=== PATIENT | female | born 1955 | race Caucasian/White ===

== ENCOUNTER 2017-05-26 15:36 | Observation (INO) | payer OTHER ==
[2017-05-26 15:36] VITALS: BMI 30.5
[2017-05-26] MEDS ORDERED: Aspirin 325 mg EC Tablets PO STA (16:28)
[2017-05-26 16:51] LABS: BASO # 0.1 K/uL (0.0-0.2); BASO % 0.9 % (0.0-2.0); EOS # 0.2 K/uL (0.0-0.7); EOS % 2.8 % (0.0-4.0); HEMATOCRIT 36.9 % (34.0-47.0); LYMPH # 3.4 K/uL (1.0-4.3); LYMPH % 40.6 % (20.0-40.0); MEAN CELL VOLUME 85.6 fL (81.0-99.0); MEAN CORPUSCULAR HEMOGLOBIN 27.9 pg (27.0-31.0); MEAN CORPUSCULAR HGB CONC 32.6 g/dL (33.0-37.0); MEAN PLATELET VOLUME 7.9 fL (7.2-11.7); MONO # 0.4 K/uL (0.0-0.8); MONO % 5.2 % (0.0-10.0); NRBC % 0.1 % (0.0-2.0); RED CELL DISTRIBUTION WIDTH 12.9 % (11.5-14.5); WHITE BLOOD COUNT 8.5 K/uL (4.8-10.8)
[2017-05-26 16:57] LABS: ALB/GLOB RATIO 1.4 (1.0-2.1); ALKALINE PHOSPHATASE 114 U/L (38-126); ALT/SGPT 60 U/L (9-52); AST/SGOT 37 U/L (14-36); BILIRUBIN,TOTAL 0.5 mg/dL (0.2-1.3); BLOOD UREA NITROGEN 20 mg/dL (7-17); CALCIUM 8.5 mg/dl (8.6-10.4); CARBON DIOXIDE 23 mmol/L (22-30); CHLORIDE 100 mmol/L (98-107); GFR AFRICAN-AMERICAN > 60; GLUCOSE,RANDOM 150 mg/dL (65-105); POTASSIUM 3.6 mmol/L (3.6-5.2); SODIUM 135 mmol/L (132-148); TOTAL PROTEIN 7.2 g/dL (6.3-8.3)
--- NOTE | 2017-05-26 17:15 | RAD ---
PROCEDURE: CHEST RADIOGRAPH, 1 VIEW HISTORY: chest pain COMPARISON: None available. FINDINGS: LUNGS: Clear. PLEURA: No pneumothorax or pleural fluid seen. CARDIOVASCULAR: Normal. OSSEOUS STRUCTURES: No significant abnormalities. VISUALIZED UPPER ABDOMEN: Normal. OTHER FINDINGS: None. IMPRESSION: No active disease.
--- NOTE | 2017-05-26 17:30 | C.PDOC ---
History Of Present Illness 61 yr old female with PMHx of HTN and high cholesterol, presents to the ER for 2 day history of chest pain, SOB and nausea worse with exertion. Patient also reports of overall body pain. Denies fever, chills vomiting, abdominal pain, diarrhea, weakness or numbness. Time Seen by Provider: 05/26/17 16:12 Chief Complaint (Nursing): Chest Pain History Per: Patient History/Exam Limitations: no limitations Onset/Duration Of Symptoms: Days (3) Past Medical History Reviewed: Historical Data, Nursing Documentation, Vital Signs Vital Signs: Last Vital Signs Temp 98.2 F 05/26/17 15:41 Pulse 92 H 05/26/17 17:32 Resp 18 05/26/17 17:32 BP 161/105 H 05/26/17 17:32 Pulse Ox 97 05/26/17 17:35 - Medical History PMH: Anxiety, Bipolar Disorder, Depression, HTN, Hypercholesterolemia, Hyperlipidemia Family History: States: No Known Family Hx - Social History Hx Tobacco Use: No Hx Alcohol Use: No Hx Substance Use: No - Immunization History Hx Tetanus Toxoid Vaccination: No Hx Influenza Vaccination: Yes Hx Pneumococcal Vaccination: Yes Review Of Systems Except As Marked, All Systems Reviewed And Found Negative. Constitutional: Positive for: Other ((+) Overall body pain). Negative for: Fever, Chills Cardiovascular: Positive for: Chest Pain Respiratory: Positive for: Shortness of Breath Gastrointestinal: Positive for: Nausea. Negative for: Vomiting, Abdominal Pain , Diarrhea Neurological: Negative for: Weakness, Numbness Physical Exam - Physical Exam Appears: Non-toxic, No Acute Distress Skin: Warm, Dry, No Rash Head: Atraumatic, Normacephalic Oral Mucosa: Moist Chest: Symmetrical, No Tenderness Cardiovascular: Rhythm Regular, No Murmur Respiratory: Normal Breath Sounds, No Rales, No Rhonchi, No Stridor, No Wheezing Extremity: Normal ROM, No Swelling Neurological/Psych: Oriented x3, Normal Speech, Normal Motor ED Course And Treatment - Laboratory Results Result Diagrams: 05/26/17 16:36 05/26/17 16:36 ECG: Interpreted By Me, Viewed By Me ECG Rhythm: Sinus Rhythm ECG Interpretation: Normal Interpretation Of ECG: Normal intervals. Normal axis. No ST/T wave abnormalities. Rate From EC O2 Sat by Pulse Oximetry: 97 (RA) Pulse Ox Interpretation: Normal - Radiology CXR: Viewed By Me, Read By Radiologist CXR Interpretation: Yes: No Acute Disease Medical Decision Making Medical Decision Making: IMPRESSION: Chest pain PLAN: * CXR * EKG * Troponin * CBC * CMP * Aspirin PO * Toradol IVP NOTE: * Spoke to DR. Dowd regarding patient. Patient to be admitted to telemetry obs for chest pain. Disposition Discussed With .: Skip Dowd Doctor Will See Patient In The: Hospital Counseled Patient/Family Regarding: Studies Performed, Diagnosis - Disposition Disposition: HOSPITALIZED Disposition Time: 17:29 Condition: FAIR Forms: [employer] (Albanian) - POA Core Measure Indicators: Chest Pain - Clinical Impression Clinical Impression: Chest pain - Scribe Statement The provider has reviewed the documentation as recorded by the Daijaibtiara Burgos Provider Attestation: All medical record entries made by the Daijaibe were at my direction and personally dictated by me. I have reviewed the chart and agree that the record accurately reflects my personal performance of the history, physical exam, medical decision making, and the department course for this patient. I have also personally directed, reviewed, and agree with the discharge instructions and disposition.
[2017-05-26] MEDS ORDERED: Apap-Butalbital-Caffeine 325-50-40mg Tab PO PRN (18:20)
--- NOTE | 2017-05-26 22:44 | CP.PCM.HP ---
History of Present Illness - History of Present Illness History of Present Illness: CC: chest pain HPI: 61 yr old female with PMHx of HTN, Diabetes and high cholesterol, who is non smoker complaint with diet, medication and follow up presents to the ER for 2 day history of substernal chest pain, SOB and nausea worse with exertion. not associated with diaphoresis , pleurisy, pain is dull in nature .Patient also reports of overall body pain. Denies fever, chills vomiting, abdominal pain, diarrhea, weakness or numbness. Present on Admission - Present on Admission Any Indicators Present on Admission: Yes Review of Systems - Review of Systems Systems not reviewed;Unavailable: Acuity of Condition - Constitutional Constitutional: Fatigue, Lethargy, Malaise - EENT Eyes: absent: As Per HPI, Blind Spots, Blurred Vision, Change in Vision, Decreased Night Vision, Diplopia, Discharge, Dry Eye, Exophthalmos, Floaters, Irritation, Itchy Eyes, Loss of Peripheral Vision, Pain, Photophobia, Requires Corrective Lenses, Sees Flashes, Spots in Vision, Tunnel Vision, Other Visual Disturbances, Loss of Vision, Other Nose/Mouth/Throat: absent: As Per HPI, Epistaxis, Nasal Congestion, Nasal Discharge, Nasal Obstruction, Nasal Trauma, Nose Pain, Post Nasal Drip, Sinus Pain, Sinus Pressure, Bleeding Gums, Change in Voice, Dental Pain, Dry Mouth, Dysphagia, Halitosis, Hoarsness, Lip Swelling, Mouth Lesions, Mouth Pain, Odynophagia, Sore Throat, Throat Swelling, Tongue Swelling, Facial Pain, Neck Pain, Neck Mass, Other - Breasts Breasts: absent: As Per HPI, Change in Shape, Mass, Pain, Nipple Discharge, Nipple Inversion, Skin Changes, Swelling, Other - Cardiovascular Cardiovascular: Chest Pain, Dyspnea, Dyspnea on Exertion. absent: As Per HPI, Acrocyanosis, Chest Pain at Rest, Chest Pain with Activity, Claudication, Diaphoresis, Edema, Irregular Heart Rhythm, Pain Radiating to Arm/Neck/Jaw, Leg Edema, Leg Ulcers, Lightheadedness, Orthopnea, Palpitations, Paroxysmal Nocturnal Dyspnea, Pedal Edema, Radiating Pain, Rapid Heart Rate, Slow Heart Rate, Syncope, Other - Respiratory Respiratory: Dyspnea. absent: As Per HPI, Cough, Hemoptysis, Dyspnea on Exertion, Wheezing, Snoring, Stridor, Pain on Inspiration, Chest Congestion, Excessive Mucous Production, Change in Mucous Color, Pain with Coughing, Other - Reproductive: Female Reproductive:Female: absent: As Per HPI, Amenorrhea, Amenorrhea/ Control, Currently Menstual, Cycle <21 Days, Cycle >35 Days, Cycle Variable, Menses 1-7 Days, Menses >/= 8 Days, Menses Variable, Cycle > 4 Weeks Between, No Menses for 6 Months, Heavy Menses, Light Menses, Normal Menses, Spotting Between Cycles , S/P Hysterectomy, Menopausal, Post Menopausal, Premenarche, Abnormal Vaginal Bleeding, Dysmenorrhea, Dyspareunia, Genital Lesions, Genital Pruritis, Pelvic Pain, Prolapse Symptoms, Sexual Dysfunction, Vaginal Discharge, Vaginal Dryness , Vaginal Odor, Vaginal Pruritis, Other - Integumentary Integumentary: absent: As Per HPI, Acne, Alopecia, Bleeding Lesions, Change in Hair, Change in Nails, Change in Pigmentation, Changing Lesions, Dry Skin, Erythema, Furuncle, Hirsutism, Lesions, New Lesions, Non-Healing Lesions, Photosensitivity, Pruritus, Rash, Skin Pain, Skin Ulcer, Sores, Striae, Swelling , Unusual Bruising, Wounds, Jaundice, Other Past Patient History - Infectious Disease Hx of Infectious Diseases: None - Tetanus Immunizations Tetanus Immunization: Unknown - Past Social History Smoking Status: Former Smoker - CARDIAC Hx Hypercholesterolemia: Yes Hx Hypertension: Yes - PULMONARY Hx Respiratory Disorders: No - NEUROLOGICAL Hx Neurological Disorder: No - HEENT Hx HEENT Problems: No (WEARS RX READING GLASSES) - RENAL Hx Chronic Kidney Disease: No - ENDOCRINE/METABOLIC Hx Endocrine Disorders: No - HEMATOLOGICAL/ONCOLOGICAL Hx Blood Disorders: No - INTEGUMENTARY Hx Dermatological Problems: No - MUSCULOSKELETAL/RHEUMATOLOGICAL Hx Musculoskeletal Disorders: No Hx Falls: No - GASTROINTESTINAL Hx Gastrointestinal Disorders: No - GENITOURINARY/GYNECOLOGICAL Hx Genitourinary Disorders: No - PSYCHIATRIC Hx Anxiety: Yes Hx Bipolar Disorder: Yes Hx Depression: Yes Hx Substance Use: No - SURGICAL HISTORY Hx Section: Yes - ANESTHESIA Hx Anesthesia: Yes Hx Anesthesia Reactions: No Hx Malignant Hyperthermia: No Meds Allergies/Adverse Reactions: Allergies Allergy/AdvReac Type Severity Reaction Status Date / Time No Known Allergies Allergy Verified 05/26/17 15:46 Physical Exam - Constitutional Appears: No Acute Distress - Head Exam Head Exam: ATRAUMATIC, NORMAL INSPECTION, NORMOCEPHALIC - Eye Exam Eye Exam: EOMI, Normal appearance, PERRL Pupil Exam: NORMAL ACCOMODATION, PERRL - Respiratory Exam Respiratory Exam: Clear to Auscultation Bilateral, NORMAL BREATHING PATTERN - Cardiovascular Exam Cardiovascular Exam: REGULAR RHYTHM - GI/Abdominal Exam GI & Abdominal Exam: Normal Bowel Sounds, Soft. absent: Tenderness - Rectal Exam Rectal Exam: Deferred - Neurological Exam Neurological exam: Alert, CN II-XII Intact, Normal Gait, Oriented x3, Reflexes Normal - Psychiatric Exam Psychiatric exam: Normal Affect, Normal Mood Results - Vital Signs Recent Vital Signs: Last Vital Signs Temp 98.2 F 05/26/17 15:41 Pulse 79 05/26/17 21:07 Resp 18 05/26/17 21:07 BP 140/84 05/26/17 21:07 Pulse Ox 97 05/26/17 21:07 - Labs Result Diagrams: 05/26/17 16:36 05/26/17 16:36 Labs: Laboratory Results - last 24 hr 05/26/17 05/26/17 16:36 16:36 WBC 8.5 RBC 4.31 Hgb 12.0 Hct 36.9 MCV 85.6 MCH 27.9 MCHC 32.6 L RDW 12.9 Plt Count 235 MPV 7.9 Neut % (Auto) 50.5 Lymph % (Auto) 40.6 H Eagle % (Auto) 5.2 Eos % (Auto) 2.8 Baso % (Auto) 0.9 Neut # 4.3 Lymph # 3.4 Eagle # 0.4 Eos # 0.2 Baso # 0.1 Sodium 135 Potassium 3.6 Chloride 100 Carbon Dioxide 23 Anion Gap 15 BUN 20 H Creatinine 0.4 L Est GFR ( Amer) > 60 Est GFR (Non-Af Amer) > 60 Random Glucose 150 H Calcium 8.5 L Total Bilirubin 0.5 AST 37 H ALT 60 H D Alkaline Phosphatase 114 Troponin I < 0.0120 Total Protein 7.2 Albumin 4.2 Globulin 3.0 Albumin/Globulin Ratio 1.4 Assessment & Plan (1) Chest pain Status: Acute (2) Chest pain Status: Acute (3) Dizziness Status: Acute
[2017-05-26 23:56] VITALS: RESP 20
--- NOTE | 2017-05-27 10:16 | CARD ---
APPROVED REPORT EKG Measurement Heart [id number] [id number] <Conclusion> Normal sinus rhythm Normal ECG
[2017-05-27 10:37] LABS: CHOLESTEROL 229 mg/dL (0-199)
[2017-05-27] MEDS: Metoprolol Succinate 25 mg XL Tab PO SCH (10:37)
[2017-05-27] MEDS: Enoxaparin 40 mg Syringe SC SCH (10:38)
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
--- NOTE | 2017-05-27 16:17 | CT ---
PROCEDURE: CT HEAD WITHOUT CONTRAST. HISTORY: r/o CVA COMPARISON: None available. TECHNIQUE: Axial computed tomography images were obtained through the head/brain without intravenous contrast. Radiation dose: Total exam DLP = 1090.58 mGy-cm. This CT exam was performed using one or more of the following dose reduction techniques: Automated exposure control, adjustment of the mA and/or kV according to patient size, and/or use of iterative reconstruction technique. FINDINGS: HEMORRHAGE: No intracranial hemorrhage. BRAIN: Normal kramer-white matter differentiation and density are appreciated throughout the cerebrum and cerebellum with the brainstem appearing unremarkable as well. There is no mass effect. There is no suspicious extra-axial fluid collection in the midline brain anatomy appears diffusely unremarkable. VENTRICLES: Unremarkable. No hydrocephalus. CALVARIUM: Unremarkable. Dense calcification in the anterior falx is identified. PARANASAL SINUSES: Unremarkable as visualized. No significant inflammatory changes. MASTOID AIR CELLS: Unremarkable as visualized. No inflammatory changes. OTHER FINDINGS: None. IMPRESSION: Unremarkable unenhanced CT of the Head. Follow-up CT or MRI can be utilized as clinically warranted.
--- NOTE | 2017-05-27 23:32 | CP.PCM.PN ---
Subjective - Date & Time of Evaluation Date of Evaluation: 05/27/17 Time of Evaluation: 18:00 - Subjective Subjective: Pt seen and examined at bedside, chest pain is resolved, less short of breath Objective - Vital Signs/Intake and Output Vital Signs (last 24 hours): Temp Pulse Resp BP Pulse Ox 98.2 F 84 20 132/80 96 05/27/17 16:26 05/27/17 16:26 05/27/17 16:26 05/27/17 16:26 05/27/17 16:26 - Medications Medications: Current Medications Acetaminophen/Butalbital/Caffeine (Fioricet) 1 tab PO QID PRN PRN Reason: headache Aripiprazole (Abilify) 5 mg PO QPM [facility] Last Admin: 05/27/17 18:45 Dose: 5 mg Aspirin (Ecotrin) 81 mg PO DAILY [facility] Last Admin: 05/27/17 10:37 Dose: 81 mg Enoxaparin Sodium (Lovenox) 40 mg SC DAILY [facility] Last Admin: 05/27/17 10:38 Dose: 40 mg Gemfibrozil (Lopid) 600 mg PO BID [facility] Last Admin: 05/27/17 18:45 Dose: 600 mg Ibuprofen (Motrin Tab) 400 mg PO TID PRN PRN Reason: Pain Last Admin: 05/27/17 20:16 Dose: 400 mg Losartan Potassium (Cozaar) 25 mg PO DAILY [facility] Last Admin: 05/27/17 10:38 Dose: 25 mg Metoprolol Succinate (Toprol Xl) 25 mg PO DAILY [facility] Last Admin: 05/27/17 10:37 Dose: 25 mg Mirtazapine (Remeron) 15 mg PO HS [facility] Rosuvastatin Calcium (Crestor) 5 mg PO HS [facility] Topiramate (Topamax) 25 mg PO [facility] - Labs Labs: 05/26/17 16:36 05/26/17 16:36 - Constitutional Appears: No Acute Distress - Head Exam Head Exam: ATRAUMATIC, NORMAL INSPECTION, NORMOCEPHALIC - Eye Exam Eye Exam: EOMI, Normal appearance, PERRL Pupil Exam: NORMAL ACCOMODATION, PERRL - Respiratory Exam Respiratory Exam: Clear to Ausculation Bilateral, NORMAL BREATHING PATTERN - Cardiovascular Exam Cardiovascular Exam: REGULAR RHYTHM, +S1, +S2. absent: Murmur - GI/Abdominal Exam GI & Abdominal Exam: Soft, Normal Bowel Sounds. absent: Tenderness Assessment and Plan (1) Chest pain Status: Acute (2) Abdominal pain Status: Acute (3) Back pain Status: Acute (4) Chest pain Status: Acute (5) Dizziness Status: Acute
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
[2017-05-28] MEDS: Metoprolol Succinate 25 mg XL Tab PO SCH (09:26)
[2017-05-28] MEDS: Enoxaparin 40 mg Syringe SC SCH (09:26)
[2017-05-28] MEDS ORDERED: Influenza Vaccine 60 mcg/0.5 mL SYR (4YR UP) IM ONE (10:00)
[2017-05-28 13:00] VITALS: BP 135/76; PULSE 75; TEMP 98; O2SAT 98
--- NOTE | 2017-05-28 14:58 | CP.PCM.PN ---
Subjective - Date & Time of Evaluation Date of Evaluation: 05/28/17 Time of Evaluation: 14:58 - Subjective Subjective: PATIENT WAS ADMITTED FOR CHEST PAIN ; AT THE BEDSIDE AAOX 3 ALL TNI WERE NEG ECG NORMAL HEAD CT WAS NEG NO SIGN OF DISTRESS NOTED Objective - Vital Signs/Intake and Output Vital Signs (last 24 hours): Temp Pulse Resp BP Pulse Ox 98 F 75 20 135/76 98 05/28/17 13:00 05/28/17 13:00 05/28/17 13:00 05/28/17 13:00 05/28/17 13:00 Intake and Output: 05/28/17 05/28/17 06:59 18:59 Intake Total 700 480 Balance 700 480 - Medications Medications: Current Medications Acetaminophen/Butalbital/Caffeine (Fioricet) 1 tab PO QID PRN PRN Reason: headache Aripiprazole (Abilify) 5 mg PO QPM [facility] Last Admin: 05/27/17 18:45 Dose: 5 mg Aspirin (Ecotrin) 81 mg PO DAILY [facility] Last Admin: 05/28/17 09:26 Dose: 81 mg Enoxaparin Sodium (Lovenox) 40 mg SC DAILY [facility] Last Admin: 05/28/17 09:26 Dose: 40 mg Gemfibrozil (Lopid) 600 mg PO BID [facility] Last Admin: 05/28/17 09:26 Dose: 600 mg Ibuprofen (Motrin Tab) 400 mg PO TID PRN PRN Reason: Pain Last Admin: 05/27/17 20:16 Dose: 400 mg Losartan Potassium (Cozaar) 25 mg PO DAILY [facility] Last Admin: 05/28/17 09:26 Dose: 25 mg Metoprolol Succinate (Toprol Xl) 25 mg PO DAILY [facility] Last Admin: 05/28/17 09:26 Dose: 25 mg Mirtazapine (Remeron) 15 mg PO HS [facility] Last Admin: 05/27/17 22:00 Dose: Not Given Rosuvastatin Calcium (Crestor) 5 mg PO HS [facility] Last Admin: 05/27/17 21:23 Dose: 5 mg Topiramate (Topamax) 25 mg PO HS [facility] Last Admin: 05/27/17 22:00 Dose: Not Given - Labs Labs: 05/26/17 16:36 05/26/17 16:36 - Respiratory Exam Respiratory Exam: Clear to Ausculation Bilateral - Cardiovascular Exam Cardiovascular Exam: +S1, +S2 Assessment and Plan - Assessment and Plan (Free Text) Assessment: A/P Pt seen and examined at bedside, chest pain is resolved, less short of breath CLEAR BY DR SOUZA FOLLOW UP WITH DR PATRICK IN A WEEK ---CALL HIS OFFICE FOR APPOINTMENT CONTINUE YOUR HOME MEDS PER MED RECS NEW RX : REMERON 15 MG PO HS LOSARTAN 25 MG PO DAILY ABILIFY 5 MG PO QPM FOR FURTHER QUESTION CALL DR PATRICK CALL DR PATRICK OR GO TO THE NEAREST ER IF SYMPTOMS RETURN OR WORSENING DISCUSS WITH PATIENT WHO AGREE WITH THE DISCHARGE PLAN
--- NOTE | 2017-05-28 16:47 | PN ---
SUBJECTIVE: The patient denies any dizziness, chest pain or shortness of breath. PHYSICAL EXAMINATION: VITAL SIGNS: Blood pressure 135/76, heart rate 75, temperature 98 and respirations 20. HEENT: Normocephalic. CHEST: Clear. HEART: S1 and S2 regular. EXTREMITIES: No edema. LABORATORY DATA: Today's blood sugar is [address] scan without contrast was unremarkable study. ASSESSMENT: 1. Atypical chest pain, myocardial infarction ruled out. 2. Hypertension. 3. Hyperlipidemia. RECOMMENDATIONS: Continue current Abilify, Cozaar, Crestor, aspirin and gemfibrozil. I did review the 2D echo study that was performed yesterday and it revealed normal ejection fraction, mild mitral insufficiency, and mild pulmonary hypertension. The patient can be discharged. Medical therapy to be followed by our program counselor, Dr. Rich, in [place]. The case was discussed with primary physician. Duran Raza MD
--- NOTE | 2017-05-28 23:18 | CP.PCM.DIS ---
Provider - Provider Date of Admission: 05/26/17 17:32 Attending physician: Skip Dowd MD Time Spent in preparation of Discharge (in minutes): 35 Diagnosis - Discharge Diagnosis (1) Chest pain Status: Acute (2) Abdominal pain Status: Acute (3) Back pain Status: Acute (4) Chest pain Status: Acute (5) Dizziness Status: Acute Hospital Course - Lab Results Lab Results: Most Recent Lab Values WBC 8.5 K/uL (4.8-10.8) 05/26/17 16:36 RBC 4.31 Mil/uL (3.80-5.20) 05/26/17 16:36 Hgb 12.0 g/dL (11.0-16.0) 05/26/17 16:36 Hct 36.9 % (34.0-47.0) 05/26/17 16:36 MCV 85.6 fL (81.0-99.0) 05/26/17 16:36 MCH 27.9 pg (27.0-31.0) 05/26/17 16:36 MCHC 32.6 g/dL (33.0-37.0) L 05/26/17 16:36 RDW 12.9 % (11.5-14.5) 05/26/17 16:36 Plt Count 235 K/uL (130-400) 05/26/17 16:36 MPV 7.9 fL (7.2-11.7) 05/26/17 16:36 Neut % (Auto) 50.5 % (50.0-75.0) 05/26/17 16:36 Lymph % (Auto) 40.6 % (20.0-40.0) H 05/26/17 16:36 [place] % (Auto) 5.2 % (0.0-10.0) 05/26/17 16:36 Eos % (Auto) 2.8 % (0.0-4.0) 05/26/17 16:36 Baso % (Auto) 0.9 % (0.0-2.0) 05/26/17 16:36 Neut # 4.3 K/uL (1.8-7.0) 05/26/17 16:36 Lymph # 3.4 K/uL (1.0-4.3) 05/26/17 16:36 [place] # 0.4 K/uL (0.0-0.8) 05/26/17 16:36 Eos # 0.2 K/uL (0.0-0.7) 05/26/17 16:36 Baso # 0.1 K/uL (0.0-0.2) 05/26/17 16:36 Sodium 135 mmol/L (132-148) 05/26/17 16:36 Potassium 3.6 mmol/L (3.6-5.2) 05/26/17 16:36 Chloride 100 mmol/L (98-107) 05/26/17 16:36 Carbon Dioxide 23 mmol/L (22-30) 05/26/17 16:36 Anion Gap 15 (10-20) 05/26/17 16:36 BUN 20 mg/dL (7-17) H 05/26/17 16:36 Creatinine 0.4 mg/dL (0.7-1.2) L 05/26/17 16:36 Est GFR ( Amer) > 60 05/26/17 16:36 Est GFR (Non-Af Amer) > 60 05/26/17 16:36 POC Glucose (mg/dL) 156 mg/dL (65-110) H 05/28/17 11:16 Random Glucose 150 mg/dL (65-105) H 05/26/17 16:36 Calcium 8.5 mg/dl (8.6-10.4) L 05/26/17 16:36 Total Bilirubin 0.5 mg/dL (0.2-1.3) 05/26/17 16:36 AST 37 U/L (14-36) H 05/26/17 16:36 ALT 60 U/L (9-52) H D 05/26/17 16:36 Alkaline Phosphatase 114 U/L (38-126) 05/26/17 16:36 Total Creatine Kinase 51 U/L (30-135) 05/27/17 07:03 CK-MB (Mass) 0.81 ng/mL (0.0-3.38) 05/27/17 07:03 Troponin I < 0.0120 ng/mL (0.00-0.120) 05/26/17 16:36 Troponin I, Quant < 0.0120 ng/mL (0.00-0.120) 05/27/17 07:03 Total Protein 7.2 g/dL (6.3-8.3) 05/26/17 16:36 Albumin 4.2 g/dL (3.5-5.0) 05/26/17 16:36 Globulin 3.0 gm/dL (2.2-3.9) 05/26/17 16:36 Albumin/Globulin Ratio 1.4 (1.0-2.1) 05/26/17 16:36 Triglycerides 212 mg/dL (0-149) H 05/27/17 07:03 Cholesterol 229 mg/dL (0-199) H 05/27/17 07:03 LDL Cholesterol Direct 189 mg/dL (0-129) H 05/27/17 07:03 HDL Cholesterol 43 mg/dL (30-70) 05/27/17 07:03 - Hospital Course Hospital Course: pt seen and examined, cardiac enzymes neg, cleared by cardiology pt is for discharge Discharge Exam - Head Exam Head Exam: ATRAUMATIC, NORMAL INSPECTION, NORMOCEPHALIC - Eye Exam Eye Exam: EOMI, Normal appearance - ENT Exam ENT Exam: Mucous Membranes Moist - Respiratory Exam Respiratory Exam: Clear to PA & Lateral, NORMAL BREATHING PATTERN - Cardiovascular Exam Cardiovascular Exam: REGULAR RHYTHM, +S1, +S2 - GI/Abdominal Exam GI & Abdominal Exam: Normal Bowel Sounds - Neurological Exam Neurological exam: Alert, CN II-XII Intact, Normal Gait, Oriented x3, Reflexes Normal Discharge Plan - Discharge Medications Prescriptions: ARIPiprazole [Abilify] 5 mg PO QPM #30 tab Losartan [Cozaar] 25 mg PO DAILY #30 tab Mirtazapine [Remeron] 15 mg PO HS #30 tab - Follow Up Plan Condition: FAIR Disposition: HOME/ ROUTINE Instructions: Chest Pain (DC), Chronic Hypertension (DC) Additional Instructions: FOLLOW UP WITH DR DOWD IN A WEEK ---CALL HIS OFFICE FOR APPOINTMENT CONTINUE YOUR HOME MEDS PER MED RECS NEW RX : REMERON 15 MG PO HS LOSARTAN 25 MG PO DAILY ABILIFY 5 MG PO QPM FOR FURTHER QUESTION CALL DR DOWD CALL DR DOWD OR GO TO THE NEAREST ER IF SYMPTOMS RETURN OR WORSENING Referrals: Skip Dowd MD [Staff Provider] -
--- NOTE | 2017-05-30 20:59 | CARD ---
APPROVED REPORT EXAM: Two-dimensional and M-mode echocardiogram with Doppler and color Doppler. Other Information Quality : GoodRhythm : INDICATION Dizziness and Vertigo Chest Pain RISK FACTORS Hypertension Hyperlipidemia 2D DIMENSIONS IVSd0.9 (0.7-1.1cm)LVDd4.3 (3.9-5.9cm) PWd1.1 (0.7-1.1cm)LVDs2.4 (2.5-4.0cm) FS (%) 43.9 %LVEF (%)75.4 (>50%) M-Mode DIMENSIONS Left Atrium (MM)4.17 (2.5-4.0cm)Aortic Root2.71 (2.2-3.7cm) Aortic Cusp Exc.2.02 (1.5-2.0cm) Mitral Valve MV E Ejlljrcr37.0cm/sMV A Srxvzgzv80.7cm/sE/A ratio0.8 TDI E/Lateral E'0.0E/Medial E'0.0 Tricuspid Valve TR Peak Nbueeckg411cn/sTR Peak Gr.[id number] LEFT VENTRICLE The left ventricle is normal size. There is normal left ventricular wall thickness. The left ventricular function is normal. The left ventricular ejection fraction is within the normal range. No regional wall motion abnormalities noted. Transmitral Doppler flow pattern is Grade I-abnormal relaxation pattern. No left ventricle thrombus noted on this study. There is no ventricular septal defect visualized. There is no left ventricular aneurysm. There is no mass noted in the left ventricle. RIGHT VENTRICLE The right ventricle is normal size. There is normal right ventricular wall thickness. The right ventricular systolic function is normal. ATRIA The left atrium size is normal. The right atrium size is normal. The interatrial septum is intact with no evidence for an atrial septal defect. AORTIC VALVE The aortic valve is normal in structure and function. No aortic regurgitation is present. There is no aortic valvular stenosis. There is no aortic valvular vegetation. MITRAL VALVE The mitral valve is normal in structure and function. There is no evidence of mitral valve prolapse. There is no mitral valve stenosis. Mitral regurgitation is mild. TRICUSPID VALVE The tricuspid valve is normal in structure and function. There is mild tricuspid regurgitation. There is no tricuspid valve prolapse or vegetation. There is no tricuspid valve stenosis. PULMONIC VALVE The pulmonary valve is normal in structure and function. There is mild pulmonic valvular regurgitation. There is no pulmonic valvular stenosis. GREAT VESSELS The aortic root is normal in size. The ascending aorta is normal in size. The pulmonary artery is normal. The IVC is normal in size and collapses >50% with inspiration. PERICARDIAL EFFUSION The pericardium appears normal. There is no pleural effusion. <Conclusion> The left ventricular ejection fraction is within the normal range. Transmitral Doppler flow pattern is Grade I-abnormal relaxation pattern. Mitral regurgitation is mild. There is mild tricuspid regurgitation. There is mild pulmonic valvular regurgitation.
== END 2017-05-28 15:54 | disposition home or self-care (01) ==
LOC: C.ER 15:36 → C.9E 17:32 → C.5S 23:50
PROVIDERS: ADMIT Internal Medicine; ATTEND Internal Medicine
DX: R07.89 Other chest pain (principal); E78.5 Hyperlipidemia, unspecified; F31.9 Bipolar disorder, unspecified; I10 Essential (primary) hypertension; Z87.891 Personal history of nicotine dependence
CPT/HCPCS: 36415; 70450; 71010; 80053; 80061; 82948; 84484; 85025; 93005; 93306; 96374; 97116; 97162; 99285; G0378; G8978; G8979; J1650; J1885

== ENCOUNTER 2017-08-16 20:56 | Emergency (ER) | payer OTHER ==
[2017-08-16 20:56] VITALS: BMI 30.5
[2017-08-16 22:17] VITALS: RESP 20; TEMP 99.4; O2SAT 98
[2017-08-16] MEDS ORDERED: Sodium Chloride 0.9% 500 ML IV ONE (23:19)
[2017-08-16 23:44] LABS: BASO # 0.1 K/uL (0.0-0.2); EOS # 0.1 K/uL (0.0-0.7); EOS % 1.8 % (0.0-4.0); HEMOGLOBIN 11.9 g/dL (11.0-16.0); LYMPH # 0.8 K/uL (1.0-4.3); LYMPH % 14.1 % (20.0-40.0); MEAN CORPUSCULAR HGB CONC 33.3 g/dL (33.0-37.0); MEAN PLATELET VOLUME 7.8 fL (7.2-11.7); MONO # 0.4 K/uL (0.0-0.8); MONO % 7.8 % (0.0-10.0); NEUT # 4.3 K/uL (1.8-7.0); NEUT % 75.3 % (50.0-75.0); RBC 4.12 Mil/uL (3.80-5.20); WHITE BLOOD COUNT 5.7 K/uL (4.8-10.8)
[2017-08-16] MEDS ORDERED: Sodium Chloride 0.9% 1,000 ML ONE (23:56)
[2017-08-16 23:58] LABS: ALB/GLOB RATIO 1.2 (1.0-2.1); ALBUMIN 4.3 g/dL (3.5-5.0); ALT/SGPT 72 U/L (9-52); AST/SGOT 83 U/L (14-36); BLOOD UREA NITROGEN 14 mg/dL (7-17); CALCIUM 9.1 mg/dl (8.6-10.4); GFR AFRICAN-AMERICAN > 60; GFR NON-AFRICAN AMERICAN > 60
--- NOTE | 2017-08-17 00:20 | C.PDOC ---
History Of Present Illness 62 year old female presents to the ER with a complaint of 2 days of nonproductive cough and throat pain. Patient reports she subsequently developed chest pain due to the coughing. Patient has no taken anything for her symptoms. Denies SOB, diaphoresis, nausea, vomiting, or recent travel. Time Seen by Provider: 08/16/17 23:04 Chief Complaint (Nursing): Chest Pain History Per: Patient History/Exam Limitations: no limitations Onset/Duration Of Symptoms: Days Current Symptoms Are (Timing): Still Present Associated Symptoms: denies: Nausea, Dyspnea, Diaphoresis, Syncope Modifying Factors: None Exacerbating Factors: None Alleviating Factors: None Recent travel outside of the [place]: No Past Medical History Reviewed: Historical Data, Nursing Documentation, Vital Signs Vital Signs: Last Vital Signs Temp 99.4 F 08/17/17 00:39 Pulse 102 H 08/17/17 00:39 Resp 20 08/17/17 00:39 BP 147/82 08/17/17 00:39 Pulse Ox 98 08/17/17 00:39 - Medical History PMH: Anxiety, Asthma, Bipolar Disorder, Depression, HTN, Hypercholesterolemia, Hyperlipidemia Family History: States: Unknown Family Hx - Social History Hx Tobacco Use: No Hx Alcohol Use: No Hx Substance Use: No - Immunization History Hx Tetanus Toxoid Vaccination: No Hx Influenza Vaccination: No Hx Pneumococcal Vaccination: No Review Of Systems Constitutional: Negative for: Fever, Chills, Sweats ENT: Positive for: Throat Pain Respiratory: Positive for: Cough. Negative for: Shortness of Breath Gastrointestinal: Negative for: Nausea, Vomiting Musculoskeletal: Positive for: Other (Chest wall pain) Physical Exam - Physical Exam Appears: Non-toxic, No Acute Distress Skin: Normal Color, Warm, Dry Head: Atraumatic, Normacephalic Eye(s): bilateral: Normal Inspection Ear(s): Bilateral: Normal Oral Mucosa: Moist Throat: Erythema (Tonsillar), No Exudate Neck: Normal, Supple Chest: Symmetrical, No Tenderness Cardiovascular: Rhythm Regular Respiratory: Normal Breath Sounds, No Rales, No Rhonchi, No Wheezing Gastrointestinal/Abdominal: Soft, No Tenderness Neurological/Psych: Oriented x3, Normal Speech ED Course And Treatment - Laboratory Results Result Diagrams: 08/16/17 23:38 08/16/17 23:38 ECG: Interpreted By Me, Viewed By Me ECG Rhythm: Sinus Tachycardia ECG Interpretation: Normal Interpretation Of ECG: Normal intervals, normal axis, no ST/T wave abnormalities. Rate From EC O2 Sat by Pulse Oximetry: 98 (room air) Pulse Ox Interpretation: Normal Medical Decision Making Medical Decision Making: Plan: * EKG * Blood work * CXR * Flu swab * Urinalysis * Toradol * IV fluids * Zithromax Diagnosis is bronchitis, patient discharged home with PMD follow up or return if symptoms worsen. Disposition Counseled Patient/Family Regarding: Studies Performed, Diagnosis, Need For Followup, Rx Given - Disposition Referrals: Hal Rolon DO [Staff Provider] - Disposition: HOME/ ROUTINE Disposition Time: 00:18 Condition: STABLE Additional Instructions: follow up with your doctor in 2 days call to make an appointment take medications as prescribed return to ER if symptoms worsens or progress Prescriptions: Azithromycin [Zithromax] 250 mg PO DAILY #4 tab Naproxen [Naprosyn] 500 mg PO BID PRN #16 tab PRN Reason: Pain, Moderate (4-7) Instructions: Acute Bronchitis (ED), Musculoskeletal Pain (ED) Forms: Gen Discharge Inst Czech, [employer] (Czech) Print Language: CHINESE - Clinical Impression Clinical Impression: Bronchitis - Scribe Statement The provider has reviewed the documentation as recorded by the Scribe Joel Mares All medical record entries made by the Daijaibtiara were at my direction and personally dictated by me. I have reviewed the chart and agree that the record accurately reflects my personal performance of the history, physical exam, medical decision making, and the department course for this patient. I have also personally directed, reviewed, and agree with the discharge instructions and disposition.
[2017-08-17 00:41] VITALS: BP 147/82; PULSE 102
[2017-08-17 00:49] LABS: SQUAMOUS EPITHIAL < 1 /hpf (0-5); URINE BILIRUBIN NEGATIVE (NEGATIVE); URINE CLARITY Clear (Clear); URINE COLOR Colorless (YELLOW); URINE GLUCOSE (UA) 3+ mg/dL (Normal); URINE LEUKOCYTE ESTERASE 1+ Leu/uL (Negative); URINE NITRATE NEGATIVE (NEGATIVE); URINE PROTEIN NEGATIVE (NEGATIVE); URINE UROBILINOGEN NORMAL mg/dL (0.2-1.0)
[2017-08-17 00:50] LABS: URINE BLOOD NEGATIVE (NEGATIVE)
--- NOTE | 2017-08-17 10:24 | RAD ---
HISTORY: COMPARISON: 05/26/2017. TECHNIQUE: Chest PA and lateral FINDINGS: LINES AND TUBES: None. LUNG AND PLEURA: The lungs are well inflated and clear. HEART AND MEDIASTINUM: The heart is not enlarged. The hilar and mediastinal contours are within normal limits. SKELETAL STRUCTURES: The bony structures are within normal limits for the patient's age. VISUALIZED UPPER ABDOMEN: Normal. OTHER FINDINGS: None. IMPRESSION: No active pulmonary disease.
--- NOTE | 2017-08-17 13:59 | CARD ---
APPROVED REPORT EKG Measurement Heart [id number] <Conclusion> Sinus tachycardia Otherwise normal ECG
== END 2017-08-17 00:41 | disposition home or self-care (01) ==
LOC: C.ER 20:56
DX: J40 Bronchitis, not specified as acute or chronic (principal)
CPT/HCPCS: 71046; 80053; 81001; 82550; 84484; 85025; 87804; 93005; 96374; 99284; J1885; J7040

== ENCOUNTER 2018-01-23 09:29 | Emergency (ER) | payer OTHER ==
[2018-01-23 09:29] VITALS: BMI 30.5
[2018-01-23 09:50] VITALS: RESP 20
[2018-01-23] MEDS ORDERED: Sodium Chloride 0.9% 1,000 ML IV ONE (10:02)
[2018-01-23 10:20] LABS: SQUAMOUS EPITHIAL 2 /hpf (0-5); URINE BACTERIA RARE (<OCC); URINE BILIRUBIN NEGATIVE (NEGATIVE); URINE BLOOD 2+ (NEGATIVE); URINE CLARITY Clear (Clear); URINE COLOR Yellow (YELLOW); URINE GLUCOSE (UA) 1+ mg/dL (Normal); URINE LEUKOCYTE ESTERASE NEG Leu/uL (Negative); URINE PROTEIN 1+ mg/dL (NEGATIVE); URINE UROBILINOGEN NORMAL mg/dL (0.2-1.0)
[2018-01-23] MEDS ORDERED: Sodium Chloride 0.9% 1,000 ML ONE (10:45)
[2018-01-23 11:05] LABS: BASO % 0.4 % (0.0-2.0); EOS % 0.5 % (0.0-4.0); HEMOGLOBIN 12.5 g/dL (11.0-16.0); LYMPH # 1.7 K/uL (1.0-4.3); LYMPH % 21.1 % (20.0-40.0); MEAN CELL VOLUME 86.4 fL (81.0-99.0); MEAN CORPUSCULAR HEMOGLOBIN 28.6 pg (27.0-31.0); MEAN CORPUSCULAR HGB CONC 33.1 g/dL (33.0-37.0); MEAN PLATELET VOLUME 7.6 fL (7.2-11.7); MONO # 0.4 K/uL (0.0-0.8); MONO % 4.6 % (0.0-10.0); NEUT % 73.4 % (50.0-75.0); RBC 4.36 Mil/uL (3.80-5.20); RED CELL DISTRIBUTION WIDTH 12.8 % (11.5-14.5); WHITE BLOOD COUNT 8.2 K/uL (4.8-10.8)
--- NOTE | 2018-01-23 11:06 | C.PDOC ---
History Of Present Illness 62 y/o female presents to the ER complaining of vaginal and rectal burning for the last 2 weeks, associated with chills. She states she was seen by her PMD and started on antibiotics for UTI with no improvement. Patient also reports a decreased appetite for 1 month following psychiatric medication adjustment. Otherwise patient denies vaginal bleeding, vaginal discharge, fever, nausea, vomiting, diarrhea, dysuria/hematuria. Time Seen by Provider: 01/23/18 09:38 Chief Complaint (Nursing): Female Genitourinary History Per: Patient History/Exam Limitations: no limitations Onset/Duration Of Symptoms: Days Current Symptoms Are (Timing): Still Present Severity: Moderate Abnormal Vaginal Bleeding: No Past Medical History Reviewed: Historical Data, Nursing Documentation, Vital Signs Vital Signs: Last Vital Signs Temp 98.8 F 01/23/18 11:34 Pulse 85 01/23/18 11:34 Resp 20 01/23/18 11:34 BP 157/92 H 01/23/18 11:34 Pulse Ox 100 01/23/18 11:47 - Medical History PMH: Anxiety, Asthma, Bipolar Disorder, Depression, Diabetes, HTN, Hypercholesterolemia, Hyperlipidemia Surgical History: Family History: States: No Known Family Hx - Social History Hx Tobacco Use: No Hx Alcohol Use: No Hx Substance Use: No - Immunization History Hx Tetanus Toxoid Vaccination: No Hx Influenza Vaccination: No Hx Pneumococcal Vaccination: No Review Of Systems Constitutional: Positive for: Chills. Negative for: Fever Gastrointestinal: Negative for: Nausea, Vomiting, Abdominal Pain, Diarrhea Genitourinary: Positive for: Other (vaginal and rectal burning). Negative for: Dysuria, Hematuria, Vaginal Discharge, Vaginal Bleeding Skin: Negative for: Rash Physical Exam - Physical Exam Appears: Well, Non-toxic, No Acute Distress Skin: Normal Color, Warm, Dry, No Rash Head: Normacephalic Eye(s): bilateral: Normal Inspection Oral Mucosa: Moist Cardiovascular: Rhythm Regular Respiratory: Normal Breath Sounds, No Rales, No Rhonchi, No Wheezing Gastrointestinal/Abdominal: Normal Exam, Bowel Sounds, Soft, No Tenderness Pelvic: Normal External Exam, Normal Bimanual Exam, No Vaginal Bleeding, No Vaginal Discharge, No Cervical Motion Tenderness, No Cervix Open, No Adnexal Tenderness, Other (Labia appear mildly erythematous and irrittated, cervix and kline appear irritated and erythematous, no vesicular lesions ) Extremity: Bilateral: Atraumatic, Normal ROM Neurological/Psych: Oriented x3 ED Course And Treatment - Laboratory Results Result Diagrams: 01/23/18 11:02 01/23/18 11:02 O2 Sat by Pulse Oximetry: 100 (RA) Pulse Ox Interpretation: Normal Progress Note: Blood work, UA, accucheck ordered and reviewed. Patient given IV Toradol and IV NS bolus. Pelvic exam suspcious for han - patient given PO Diflucan, as well as Rx for vaginal miconazole and Diflucan. Reevaluation Time: 11:45 Reassessment Condition: Improved (Patient reassessed, is resting comfortably and states she feels better. She was instructed to follow up with her diamond cutter within 1 week, and understands she should return to ED if her symptoms worsen.) Disposition Counseled Patient/Family Regarding: Studies Performed, Diagnosis, Need For Followup, Rx Given - Disposition Referrals: Jacek Victor DO [Staff Provider] - [facility] [Outside] Disposition: HOME/ ROUTINE Disposition Time: 11:45 Condition: STABLE Additional Instructions: FOLLOW UP WITH YOUR DOCTOR IN 1-2 DAYS, AND WITH RN SURGERY ICU WITHIN 1 WEEK USE MEDICATIONS DIRECTED FOLLOW UP WITH YOUR PSYCHIATRIST FOR ADJUSTMENT OF YOUR MEDICATIONS RETURN TO ER IF SYMPTOMS WORSEN Prescriptions: Fluconazole [Diflucan] 150 mg PO DAILY #2 tab Miconazole/Cleanser 17 On Wipe [Miconazole 3 Kit] 1 each VG DAILY #1 kit Instructions: Vaginal Yeast Infection (DC) Forms: [employer] (Indonesian) Print Language: YORUBA - Clinical Impression Clinical Impression: Vaginal candidiasis - Scribe Statement The provider has reviewed the documentation as recorded by the Suzie Kenney Provider Attestation: All medical record entries made by the Suzie were at my direction and personally dictated by me. I have reviewed the chart and agree that the record accurately reflects my personal performance of the history, physical exam, medical decision making, and the department course for this patient. I have also personally directed, reviewed, and agree with the discharge instructions and disposition.
[2018-01-23 11:28] LABS: ALB/GLOB RATIO 1.2 (1.0-2.1); ALT/SGPT 39 U/L (9-52); AST/SGOT 28 U/L (14-36); BLOOD UREA NITROGEN 15 mg/dL (7-17); CALCIUM 9.1 mg/dl (8.6-10.4); GFR AFRICAN-AMERICAN > 60; GFR NON-AFRICAN AMERICAN > 60
[2018-01-23 11:35] VITALS: BP 157/92; PULSE 85; TEMP 98.8
[2018-01-23 11:46] VITALS: O2SAT 100
== END 2018-01-23 12:03 | disposition home or self-care (01) ==
LOC: C.ER 09:29
DX: B37.3 Candidiasis of vulva and vagina (principal)
CPT/HCPCS: 80053; 81001; 82948; 85025; 87086; 96361; 96374; 99284; J1885; J7030

== ENCOUNTER 2018-01-28 16:01 | Emergency (ER) | payer OTHER ==
[2018-01-28 16:03] VITALS: BMI 30.5
[2018-01-28 16:18] VITALS: BP 142/103; PULSE 94; RESP 16; TEMP 98; O2SAT 98
[2018-01-28 16:47] LABS: SQUAMOUS EPITHIAL 1 /hpf (0-5); URINE BILIRUBIN NEGATIVE (NEGATIVE); URINE BLOOD 2+ (NEGATIVE); URINE CLARITY Clear (Clear); URINE COLOR Yellow (YELLOW); URINE GLUCOSE (UA) NORMAL (Normal); URINE LEUKOCYTE ESTERASE NEG Leu/uL (Negative); URINE PROTEIN NEGATIVE (NEGATIVE); URINE UROBILINOGEN NORMAL mg/dL (0.2-1.0)
--- NOTE | 2018-01-28 17:08 | C.PDOC ---
History Of Present Illness 62 yo female w/PMhx of psych ds, come in for evaluation of vaginal discomfort, pain gradually developed for past 3 weeks. Pt reports, pain is localized " inside my private area", associated with discomfort on urination, defecation, affecting appetite. Family reports, pt was seen here on 01/23/18 and received medication for yeast infection without improvement. Otherwise, family denies fever, chills, sore throat, cough, CP, SOB, dyspnea, abd. apin, V/D, hematuria, vaginal discharges. Ambulate to Ed , appears in pain. Time Seen by Provider: 01/28/18 16:30 Chief Complaint (Nursing): Female Genitourinary History Per: Patient, Family Onset/Duration Of Symptoms: Gradual Past Medical History Reviewed: Historical Data, Nursing Documentation, Vital Signs Vital Signs: Last Vital Signs Temp 98 F 01/28/18 16:13 Pulse 94 H 01/28/18 16:13 Resp 16 01/28/18 16:13 BP 142/103 H 01/28/18 16:13 Pulse Ox 98 01/28/18 17:08 - Medical History PMH: Anxiety, Asthma, Bipolar Disorder, Depression, Diabetes, HTN, Hypercholesterolemia, Hyperlipidemia Denies: Chronic Kidney Disease Surgical History: Family History: States: Unknown Family Hx - Social History Hx Tobacco Use: No Hx Alcohol Use: No Hx Substance Use: No - Immunization History Hx Tetanus Toxoid Vaccination: No Hx Influenza Vaccination: No Hx Pneumococcal Vaccination: No Review Of Systems Except As Marked, All Systems Reviewed And Found Negative. Constitutional: Negative for: Fever, Chills ENT: Negative for: Throat Pain Cardiovascular: Negative for: Chest Pain, Palpitations Respiratory: Negative for: Cough, Wheezing Gastrointestinal: Negative for: Nausea, Vomiting, Abdominal Pain, Diarrhea Genitourinary: Positive for: Frequency. Negative for: Hematuria, Vaginal Discharge, Vaginal Bleeding Musculoskeletal: Negative for: Neck Pain, Back Pain Skin: Negative for: Rash Neurological: Negative for: Weakness, Numbness, Headache, Dizziness Physical Exam - Physical Exam Appears: Well, Non-toxic, No Acute Distress Skin: Normal Color, Warm, Dry, No Rash Head: Normacephalic Eye(s): bilateral: PERRL Nose: No Discharge Oral Mucosa: Moist Throat: No Erythema, No Drooling Neck: Trachea Midline, Supple Cardiovascular: Rhythm Regular, No Murmur, No JVD Respiratory: No Decreased Breath Sounds, No Accessory Muscle Use, No Stridor, No Wheezing Gastrointestinal/Abdominal: Soft, No Tenderness, No Distention, No Guarding, No Rebound Back: No CVA Tenderness Pelvic: No Vaginal Bleeding, No Vaginal Discharge, Other (mild diffuse external vulvar edema and erythema.) Extremity: Normal ROM, No Pedal Edema, No Deformity, No Swelling Neurological/Psych: Oriented x3, Normal Speech ED Course And Treatment O2 Sat by Pulse Oximetry: 98 Pulse Ox Interpretation: Normal Progress Note: records from previous visit to ED on 01/23/18 review, blood work, UA, Ucx- no acute abnormalities. On re-eval, pt is afebrile, hemodynamicaly stable. Non-toxic. AMbulatory in ED with stable gait. PulseOx 98% RA. ENT: no acute findings. neck: SUpple. Abd: benign, (-) guarding, (-) rebound. Back : (-) CVA tenderness. Pelvic: mild vulvovaginitis, no acute findings. Results review and discussed with and family. Pt has clinical findings c/w vulvovaginitis vs h.zoster, initial, vs menopausal changes. Pt advised and ref. to F/u with PMD, [facility] [employer] in 1-2 days for re-eval. return to ED if any worsening or new changes. Disposition Counseled Patient/Family Regarding: Studies Performed, Diagnosis, Need For Followup, Rx Given - Disposition Referrals: Jacek Victor DO [Staff Provider] - [facility] [Outside] Disposition: HOME/ ROUTINE Disposition Time: 17:24 Condition: STABLE Additional Instructions: Take medication as prescribed Follow up with PMD, [employer] [employer] [facility] in 2-3 days for re-evaluation. return to Ed if any worsening or new changes. Prescriptions: Fluconazole [Diflucan] 200 mg PO DAILY #3 tab Miconazole [Miconazole 7] 1 supp VG HS #7 sup traMADol [Ultram] 50 mg PO TID #10 tab valACYclovir [Valtrex] 1,000 mg PO TID #21 tab Instructions: Vulvovaginal Yeast Infection Forms: [employer] (Maori) Print Language: BARBADIAN - Clinical Impression Clinical Impression: Vaginal candidiasis, Shingles rash
== END 2018-01-28 17:36 | disposition home or self-care (01) ==
LOC: C.ER 16:01
DX: B37.3 Candidiasis of vulva and vagina (principal); B02.9 Zoster without complications

== ENCOUNTER 2018-03-14 10:44 | Emergency (ER) | payer OTHER ==
[2018-03-14 10:44] VITALS: BMI 30.5
--- NOTE | 2018-03-14 11:25 | C.PDOC ---
History Of Present Illness 62yo female, comes to ER with complaints of abdominal pain and an "infection" x 2 months. Patient states she was evaluated by Dr. Victor and had multiple antibiotic treatments with no relief of symptoms. She denies any fever, chills, chest pain, vomiting, diarrhea. She reports pain to her buttocks as well as her pelvic. She denies any vaginal bleeding, discharge, foul odors. She has no other complaints. Time Seen by Provider: 03/14/18 11:07 Chief Complaint (Nursing): Female Genitourinary History Per: Patient History/Exam Limitations: no limitations Onset/Duration Of Symptoms: Persistent Current Symptoms Are (Timing): Still Present Quality Of Discomfort: "Pain" Associated Symptoms: denies: Fever, Chills, Nausea, Vomiting, Diarrhea, Back Pain, Chest Pain Additional History Per: Patient Past Medical History Reviewed: Historical Data, Nursing Documentation, Vital Signs Vital Signs: Last Vital Signs Temp 98.7 F 03/14/18 13:50 Pulse 89 03/14/18 13:50 Resp 16 03/14/18 13:50 BP 149/64 03/14/18 13:50 Pulse Ox 95 03/14/18 15:29 - Medical History PMH: Anxiety, Asthma, Bipolar Disorder, Depression, Diabetes, HTN, Hypercholesterolemia, Hyperlipidemia Denies: Chronic Kidney Disease Surgical History: Family History: States: No Known Family Hx - Social History Hx Tobacco Use: No Hx Alcohol Use: No Hx Substance Use: No - Immunization History Hx Tetanus Toxoid Vaccination: No Hx Influenza Vaccination: No Hx Pneumococcal Vaccination: No Review Of Systems Except As Marked, All Systems Reviewed And Found Negative. Constitutional: Negative for: Fever, Chills Cardiovascular: Negative for: Chest Pain Respiratory: Negative for: Shortness of Breath Gastrointestinal: Positive for: Abdominal Pain, Rectal Pain. Negative for: Vomiting Genitourinary: Positive for: Pelvic Pain. Negative for: Vaginal Discharge, Vaginal Bleeding Physical Exam - Physical Exam Appears: Non-toxic, No Acute Distress Skin: Normal Color, Warm, Dry Head: Atraumatic, Normacephalic Eye(s): bilateral: Normal Inspection, PERRL, EOMI Neck: Normal, Supple Chest: Symmetrical Cardiovascular: Rhythm Regular Respiratory: Normal Breath Sounds Gastrointestinal/Abdominal: Normal Exam, Soft, No Tenderness, No Mass, No Guarding, No Rebound Rectal: Normal Exam, No Hemorrhoids, No Mass, No Tenderness Back: Normal Inspection Pelvic: No Vaginal Bleeding, No Vaginal Discharge, Other (skin tags noted to left vulva region, no abscess or infectious process noted.) Extremity: Normal ROM Neurological/Psych: Oriented x3, Normal Speech, Normal Cognition ED Course And Treatment - Laboratory Results Result Diagrams: 03/14/18 11:47 03/14/18 11:47 O2 Sat by Pulse Oximetry: 95 (RA) Pulse Ox Interpretation: Normal Medical Decision Making Medical Decision Making: Assessment: Failed outpatient treatment Plan: [address] Victor who states he did not notice any clinical findings on patient as well. He sent the patient to the ER as she "wanted to come to the hospital." Patient reports persistent pelvic burning sensation. * Labs * US Pelvis * Chlamydia/GC RNA, TMA * Urinalysis * Urine culture * Blood culture 1451 US pelvis Findings: Uterus: 6.8 x 2.8 x 3.9 centimeters. Heterogeneous echotexture. Anteverted. Heterogeneous lesion seen within the posterior submucosal region of the uterus suggestive for a fibroid lesion measuring 1.5 x 1.0 x 1.4 centimeters. Endometrium measures 5 millimeters, within normal limits. Small amount of free fluid within pelvic cul-de-sac. Right ovary: 2.7 x 1.2 x 2.1 centimeters. Normal flow. Left ovary: Not well visualized. Technically limited study. Impression: Technically limited study. Left ovary not well visualized. Small amount of free fluid in the pelvic cul-de-sac. Heterogeneous lesion seen within the posterior submucosal region of the uterus suggestive for a fibroid lesion measuring up to 1.5 centimeters. Clinical correlation. 1526 - patient resting comfortably, no signs of skin or pelvic infection on exam. Will discharge home with follow up with robotic weld technician within 2 dyas Disposition Counseled Patient/Family Regarding: Studies Performed, Diagnosis, Need For Followup, Rx Given - Disposition Referrals: Lynn Owens MD [Staff Provider] - [facility] [Outside] Disposition: HOME/ ROUTINE Disposition Time: 15:27 Condition: STABLE Additional Instructions: follow up with Dr. Owens or [facility] within 2 days call to make an appointment take medication as needed for pain return to ER if symptoms worsens or progress Prescriptions: Acetaminophen/Codeine [Tylenol/Codeine 300 MG/30 MG] 1 tab PO Q6H PRN #12 tab PRN Reason: Pain, Severe (8-10) Naproxen [Naprosyn] 500 mg PO BID PRN #16 tab PRN Reason: Pain, Moderate (4-7) Instructions: Uterine Fibroids, Acute Pelvic Pain (DC) Forms: Gen Discharge Inst Israeli, [employer] (Israeli) Print Language: BELGIAN - Clinical Impression Clinical Impression: Fibroid, Pelvic pain in female - Scribe Statement The provider has reviewed the documentation as recorded by the Suzie Rogers Provider Attestation: All medical record entries made by the Suzie were at my direction and personally dictated by me. I have reviewed the chart and agree that the record accurately reflects my personal performance of the history, physical exam, medical decision making, and the department course for this patient. I have also personally directed, reviewed, and agree with the discharge instructions and disposition.
[2018-03-14 11:51] LABS: BASO # 0.1 K/uL (0.0-0.2); BASO % 0.7 % (0.0-2.0); EOS % 0.6 % (0.0-4.0); HEMOGLOBIN 12.5 g/dL (11.0-16.0); LYMPH # 2.1 K/uL (1.0-4.3); LYMPH % 25.4 % (20.0-40.0); MEAN CELL VOLUME 86.5 fL (81.0-99.0); MEAN CORPUSCULAR HEMOGLOBIN 29.2 pg (27.0-31.0); MEAN CORPUSCULAR HGB CONC 33.8 g/dL (33.0-37.0); MEAN PLATELET VOLUME 7.5 fL (7.2-11.7); MONO # 0.4 K/uL (0.0-0.8); NEUT # 5.7 K/uL (1.8-7.0); NEUT % 68.3 % (50.0-75.0); RBC 4.29 Mil/uL (3.80-5.20); RED CELL DISTRIBUTION WIDTH 12.8 % (11.5-14.5); WHITE BLOOD COUNT 8.3 K/uL (4.8-10.8)
[2018-03-14 12:03] LABS: ALB/GLOB RATIO 1.4 (1.0-2.1); ALBUMIN 4.4 g/dL (3.5-5.0); ALT/SGPT 35 U/L (9-52); AST/SGOT 21 U/L (14-36); BLOOD UREA NITROGEN 17 mg/dL (7-17); CALCIUM 9.6 mg/dl (8.6-10.4); GFR NON-AFRICAN AMERICAN > 60; LIPASE 47 U/L (23-300)
[2018-03-14 12:25] LABS: SQUAMOUS EPITHIAL 4 /hpf (0-5); URINE BACTERIA RARE (<OCC); URINE BILIRUBIN NEGATIVE (NEGATIVE); URINE BLOOD 2+ (NEGATIVE); URINE CLARITY Hazy (Clear); URINE COLOR Yellow (YELLOW); URINE GLUCOSE (UA) NORMAL (Normal); URINE LEUKOCYTE ESTERASE NEG Leu/uL (Negative); URINE PROTEIN NEGATIVE (NEGATIVE); URINE UROBILINOGEN NORMAL mg/dL (0.2-1.0)
--- NOTE | 2018-03-14 14:53 | US ---
Pelvic ultrasound History: Pelvic pain. Comparison: None available. Technique: Real-time sonography was performed through the pelvis utilizing transabdominal and transvaginal techniques. Findings: Uterus: 6.8 x 2.8 x 3.9 centimeters. Heterogeneous echotexture. Anteverted. Heterogeneous lesion seen within the posterior submucosal region of the uterus suggestive for a fibroid lesion measuring 1.5 x 1.0 x 1.4 centimeters. Endometrium measures 5 millimeters, within normal limits. Small amount of free fluid within pelvic cul-de-sac. Right ovary: 2.7 x 1.2 x 2.1 centimeters. Normal flow. Left ovary: Not well visualized. Technically limited study. Impression: Technically limited study. Left ovary not well visualized. Small amount of free fluid in the pelvic cul-de-sac. Heterogeneous lesion seen within the posterior submucosal region of the uterus suggestive for a fibroid lesion measuring up to 1.5 centimeters. Clinical correlation.
[2018-03-14 15:51] VITALS: BP 145/90; PULSE 68; RESP 18; TEMP 98.2; O2SAT 99
== END 2018-03-14 15:56 | disposition home or self-care (01) ==
LOC: C.ER 10:44
DX: R10.2 Pelvic and perineal pain (principal); D25.0 Submucous leiomyoma of uterus; E78.00 Pure hypercholesterolemia, unspecified; E11.9 Type 2 diabetes mellitus without complications; I10 Essential (primary) hypertension
CPT/HCPCS: 76830; 76856; 80053; 81001; 83690; 85025; 87040; 87086; 87491; 87591; 96374; 96375; 99285; J1885

== ENCOUNTER 2018-10-21 11:03 | Emergency (ER) | payer OTHER ==
[2018-10-21 11:03] VITALS: BMI 30.5
[2018-10-21 11:14] VITALS: RESP 16; TEMP 98; O2SAT 98
--- NOTE | 2018-10-21 12:09 | C.PDOC ---
History Of Present Illness 63 y/o female pt with chronic back pain, DM, HTN, HLD and arthritis presents to the ER by EMS c/o right knee pain with associated right foot pain. Pt notes she was walking to the [employer] when she felt her knee pop with sudden pain to her right knee and right foot. Pt rates the pain to be 10/10. Pain is sharp, constant and unable to to bear weight on the right leg. Pt notes she took 4 Advil for the pain with little relief. Pt denies trauma/injury, headache, dizziness, numbness, and tingling. Chief Complaint (Nursing): Lower Extremity Problem/Injury History Per: Patient History/Exam Limitations: no limitations Onset/Duration Of Symptoms: Hrs Current Symptoms Are (Timing): Still Present - Knee Currently Unable To: Bear Weight, Straighten - Ankle/Foot Currently Unable To: Bear Weight Past Medical History Reviewed: Historical Data, Nursing Documentation, Vital Signs Vital Signs: Last Vital Signs Temp 98 F 10/21/18 11:12 Pulse 84 10/21/18 11:12 Resp 16 10/21/18 11:12 BP 160/90 H 10/21/18 11:12 Pulse Ox 98 10/21/18 11:12 - Medical History PMH: Anxiety, Asthma, Bipolar Disorder, Depression, Diabetes, HTN, Hypercholesterolemia, Hyperlipidemia Surgical History: Family History: States: Unknown Family Hx - Social History Hx Tobacco Use: No Hx Alcohol Use: No Hx Substance Use: No - Immunization History Hx Tetanus Toxoid Vaccination: No Hx Influenza Vaccination: No Hx Pneumococcal Vaccination: No Review Of Systems Musculoskeletal: Positive for: Foot Pain (right ), Other (right knee pain ). Negative for: Neck Pain Skin: Positive for: Other (swelling of right knee and right foot ). Negative for: Rash, Bruising Neurological: Negative for: Weakness, Numbness, Headache, Other (paresthesia) Physical Exam - Physical Exam Appears: Non-toxic, In Acute Distress (mild) Skin: Warm, Dry Head: Atraumatic, Normacephalic Cardiovascular: Rhythm Regular Respiratory: Normal Breath Sounds, No Accessory Muscle Use Extremity: No Normal ROM (painful with ROM ), Tenderness (right knee: to palpation to right knee joint; edematous, no erythema. Right foot: slight edema noted, medially aloong the great toe, no ecchymosis. ), No Calf Tenderness, Capillary Refill (<2 sec ), No Deformity, No Swelling Pulses: Left Dorsalis Pedis: Normal, Right Dorsalis Pedis: Normal Neurological/Psych: Oriented x3, Normal Speech, Normal Cognition, Normal Motor, Normal Sensation ED Course And Treatment O2 Sat by Pulse Oximetry: 98 (RA) Pulse Ox Interpretation: Normal - Other Rad right knee X-Ray: Viewed By Me, Read By Radiologist Interpretation: Accession No. : [id number]. Patient Name / ID : TERESA GARCIA / [id number]. Exam Date : 10/21/2018 12:13:36 ( Approved ). Study Comment : Sex / Age : F / 63Y. Creator : Danny Tobar MD. Dictator : Danny Tobar MD. Pharmaceutical Sales Specialist : Toe Stripper : Danny Tobar MD. Approver2 : Report Date : 10/21/2018 13:29:00. My Comment : . Right knee three views. HISTORY: Pain. COMPARISON: None available. Findings: Mild to moderate medial compartment joint space narrowing of the femorotibial joint space. Moderate narrowing at the inferior aspect of the patellofemoral joint space. Small suprapatellar joint effusion. Curvilinear lucency and or small radiopaque density adjacent to the posterior lateral proximal fibula which may represent a small avulsion injury versus accessory ossicle versus additional etiology. Clinical correlation. Impression: 1. Mild to moderate medial compartment joint space narrowing of the femorotibial joint space. 2. Moderate narrowing at the inferior aspect of the patellofemoral joint space. 3. Small suprapatellar joint effusion. 4. Curvilinear lucency and or small radiopaque density adjacent to the posterior lateral proximal fibula which may represent a small avulsion injury versus accessory ossicle versus additional etiology. Clinical correlation. If pain persists, consider correlation with MRI. foot X-Ray: Viewed By Me, Read By Radiologist Interpretation: Accession No. : [id number]. Patient Name / ID : TERESA GARCIA / [id number]. Exam Date : 10/21/2018 12:13:20 ( Approved ). Study Comment : Sex / Age : F / 63Y. Creator : Danny Tobar MD. Dictator : Danny Tobar MD. Pharmaceutical Sales Specialist : Toe Stripper : Danny Tobar MD. Approver2 : Report Date : 10/21/2018 13:23:53. My Comment : . Right foot three views. HISTORY: Pain. COMPARISON: None available. Findings: Moderate hallux valgus deformity. Accessory ossicle adjacent to the cuboid bone. Impression: Moderate hallux valgus deformity. Accessory ossicle adjacent to the cuboid bone. If pain persists, consider correlation with MRI. Medical Decision Making Medical Decision Making: plans: -- tylenol given -- right foot XR:Moderate hallux valgus deformity. Accessory ossicle adjacent to the cuboid bone. -- right knee XR:1. Mild to moderate medial compartment joint space narrowing of the femorotibial joint space. 2. Moderate narrowing at the inferior aspect of the patellofemoral joint space. 3. Small suprapatellar joint effusion. 4. Curvilinear lucency and or small radiopaque density adjacent to the posterior lateral proximal fibula which may represent a small avulsion injury versus accessory ossicle versus additional etiology. D/w patient results Start Naproxen twice a day for pain Rest, Ice, Compression, and Elevation Follow up with Ortho in -12 days- may need MRI imaging Patient verbalizes understanding and is in agreement with plan. Patient is stable for discharge. Disposition Counseled Patient/Family Regarding: Studies Performed, Diagnosis, Need For Followup, Rx Given - Disposition Referrals: Sylvia Macias MD [Staff Provider] - Disposition: HOME/ ROUTINE Disposition Time: 13:40 Condition: STABLE Additional Instructions: Start Naproxen twice a day for pain Rest, Ice, Compression, and Elevation Follow up with Ortho in -12 days- may need MRI imaging Return to ED if symptoms worsen Prescriptions: Naproxen [Naprosyn] 500 mg PO BID #30 tablet Instructions: Knee Pain (DC) Forms: [employer] (Haitian) - Clinical Impression Clinical Impression: Knee joint effusion, Knee pain, right - PA / CREDIT COLLECTION SPECIALIST / Resident Statement MD/DO has reviewed & agrees with the documentation as recorded. - Scribe Statement The provider has reviewed the documentation as recorded by the Suzie Willis Do All medical record entries made by the Suize were at my direction and personally dictated by me. I have reviewed the chart and agree that the record accurately reflects my personal performance of the history, physical exam, medical decision making, and the department course for this patient. I have also personally directed, reviewed, and agree with the discharge instructions and disposition.
--- NOTE | 2018-10-21 13:27 | RAD ---
Right foot three views HISTORY: Pain. COMPARISON: None available. Findings: Moderate hallux valgus deformity. Accessory ossicle adjacent to the cuboid bone. Impression: Moderate hallux valgus deformity. Accessory ossicle adjacent to the cuboid bone. If pain persists, consider correlation with MRI.
--- NOTE | 2018-10-21 13:32 | RAD ---
Right knee three views HISTORY: Pain. COMPARISON: None available. Findings: Mild to moderate medial compartment joint space narrowing of the femorotibial joint space. Moderate narrowing at the inferior aspect of the patellofemoral joint space. Small suprapatellar joint effusion. Curvilinear lucency and or small radiopaque density adjacent to the posterior lateral proximal fibula which may represent a small avulsion injury versus accessory ossicle versus additional etiology. Clinical correlation. Impression: 1. Mild to moderate medial compartment joint space narrowing of the femorotibial joint space. 2. Moderate narrowing at the inferior aspect of the patellofemoral joint space. 3. Small suprapatellar joint effusion. 4. Curvilinear lucency and or small radiopaque density adjacent to the posterior lateral proximal fibula which may represent a small avulsion injury versus accessory ossicle versus additional etiology. Clinical correlation. If pain persists, consider correlation with MRI.
[2018-10-21 14:05] VITALS: BP 146/85; PULSE 78
== END 2018-10-21 14:04 | disposition home or self-care (01) ==
LOC: C.ER 11:03
DX: M25.561 Pain in right knee (principal); M25.461 Effusion, right knee